=== PATIENT | female | born 1995 | race Caucasian/White ===

== ENCOUNTER 2016-09-06 19:54 | Emergency (ER) | payer OTHER ==
[2016-09-06 20:00] VITALS: O2SAT 96
--- NOTE | 2016-09-06 20:25 | EDPHY ---
H & P Time Seen by Provider: 09/06/16 20:23 HPI/ROS: CHIEF COMPLAINT: Left thumb injury HISTORY OF PRESENT ILLNESS: 21-year-old female with up-to-date tetanus right- hand-dominant was cutting onions which sustained accidental laceration to the distal left thumb. Occurred shortly prior to arrival. PHYSICAL EXAM (Prior to examination, patient consented to physical exam, hands were washed and my usual and customary physical exam procedures followed) 1) GENERAL: Well-developed, well-nourished, alert and oriented. Appears to be in no acute distress. 2) HEAD: Normocephalic 3) HEENT: sclera anicteric 4) LUNGS: Breathing comfortably. 5) SKIN: Left thumb distal phalanx 1 cm laceration well demarcated 6) MUSCULOSKELETAL: flexor extensor function at the MCP PIP intact 7) NEUROLOGIC: full sensation Smoking Status: Never smoked Constitutional: Initial Vital Signs Temperature (C) 36.9 C 09/06/16 19:56 Heart Rate 89 09/06/16 19:56 Respiratory Rate 16 09/06/16 19:56 Blood Pressure 101/62 09/06/16 19:56 O2 Sat (%) 96 09/06/16 19:56 O2 Delivery Mode Room Air Allergies/Adverse Reactions: No Known Allergies Allergy (Unverified 09/06/16 19:56) Home Medications: Medication Instructions Recorded Lexapro 09/06/16 MDM/Departure - MDM Procedures: Procedure: Laceration repair with tissue adhesive Verbal consent was obtained from the patient. The 1 cm laceration on the left thumb. The wound was scrubbed and explored to its base with a gloved finger. No foreign body seen, no foreign bodies palpated. There were no deep structures involved. The wound was repaired with tissue adhesive. The procedure was performed by myself. Patient has been informed that scarring will occur, although every effort has been made to minimize this. - Depart Disposition: Home, Routine, Self-Care Clinical Impression: Laceration of left thumb Qualifiers: Encounter type: initial encounter Damage to nail status: with damage Foreign body presence: without foreign body Qualified Code(s): S61.112A - Laceration without foreign body of left thumb with damage to nail, initial encounter Condition: Good Instructions: Laceration (ED) Additional Instructions: Return to the ER if you develop redness, swelling, discharge, warmth to the wound, red streaks going up your arm , or any other symptoms that concern you. Referrals: Saurabh Singh MD [Medical Doctor] - 1-2 days without fail
[2016-09-06] MEDS ORDERED: SKIN ADHESIVE (DERMABOND) 1 EACH TP ONE (20:52)
[2016-09-06 21:07] VITALS: BP 100/68; PULSE 86; RESP 18; TEMP 97.9
== END 2016-09-06 21:07 | disposition home or self-care (01) ==
PROC: 0HQGXZZ Repair Left Hand Skin, External Approach (ICD-10-PCS; principal; 2016-09-06)
DX: S61.112A Laceration without foreign body of left thumb with damage to nail, initial encounter (principal); W26.0XXA Contact with knife, initial encounter